=== PATIENT | female | born 1990 | race Caucasian/White ===

== ENCOUNTER 2020-04-01 07:39 | Inpatient (IN) ==
[2020-04-01] MEDS ORDERED: miSOPROStoL 50 MCG TAB PO ONE (09:27)
[2020-04-01] MEDS ORDERED: OXYTOCIN 30 UNITS/500 ML BAG IV PRN (09:27)
--- NOTE | 2020-04-01 09:35 | Progress Note ---
Date of Service April 01, 2020 Assessment & Plan Admission and Anticipated Discharge Date Admission Date: April 01, 2020 Subjective Pt doing well Induction for prolonged gestation Bedside sono; VT FHR; CAT1 Ctx; minimal VE; ft/post/-3 EFW by juan; 7-8Lbs Results & Data ([facility]) Vital Signs (Past 12 Hours) Vital Signs Temp Pulse Resp BP 04/01/20 07:47 36.8 C 108 H 20 138/80
[2020-04-01 09:57] LABS: Hematocrit (blood only) 33.6 % (37-47); Hemoglobin 11.5 g/dL (12.0-16.0); Mean Corpuscular Hemoglobin 30.4 pg (25-34); Mean Corpuscular Hgb Conc 34.2 g/dL (32-36); Mean Corpuscular Volume 88.9 fL (80-100); Mean Platelet Volume 9.8 fL (7.4-10.4); Platelet Count 373 K/uL (130-400); RDW Coefficient of Variation 13.7 % (11.5-14.5); Red Blood Count 3.78 M/uL (4.2-5.4); White Blood Count 16.13 K/uL (4.8-10.8)
--- NOTE | 2020-04-01 16:42 | Progress Note ---
Date of Service April 01, 2020 Assessment & Plan Admission and Anticipated Discharge Date Admission Date: April 01, 2020 Subjective Pt doiong well FHR' CAT1 Ctx; 2-3.mild intensity discussed starting Pitocin pt agrees Results & Data ([facility]) Vital Signs (Past 12 Hours) Vital Signs Temp Pulse Resp BP 04/01/20 14:56 98 H 111/72 04/01/20 11:38 37.0 C 84 20 113/58 L 04/01/20 07:47 36.8 C 108 H 20 138/80
[2020-04-01] MEDS: LACTATED RINGER'S 1,000 ML IV PRN (17:04)
[2020-04-01] MEDS: OXYTOCIN 30 UNITS/500 ML BAG IV PRN (17:05)
[2020-04-01] MEDS ORDERED: DINOPROSTONE 10 MG INSERT PV ONE (23:22)
--- NOTE | 2020-04-01 23:22 | Progress Note ---
Date of Service April 01, 2020 Assessment & Plan Admission and Anticipated Discharge Date Admission Date: April 01, 2020 Subjective Pt doing well Pit 20 MU Ctx irregular. mild intensity VE; ft/post FHr; CAT1 Plan D/C Piitocin feed pt Cervidil Results & Data ([facility]) Vital Signs (Past 12 Hours) Vital Signs Temp Pulse Resp BP 04/01/20 21:11 36.7 C 18 04/01/20 20:55 77 125/73 04/01/20 20:02 81 104/51 L 04/01/20 19:08 88 119/65 04/01/20 19:05 36.7 C 18 04/01/20 16:54 86 131/80 04/01/20 14:56 36.9 C 98 H 18 111/72 04/01/20 11:38 37.0 C 84 20 113/58 L
[2020-04-01] MEDS: ONDANSETRON INJ 2 MG/ML 2 ML VIAL IV PRN (23:32)
--- NOTE | 2020-04-02 01:38 | Progress Note ---
Date of Service April 02, 2020 Assessment & Plan Admission and Anticipated Discharge Date Admission Date: April 01, 2020 Subjective Cervidil inserted in vagina VE; Unchanged FHR; CAT1 Results & Data ([facility]) Vital Signs (Past 12 Hours) Vital Signs Temp Pulse Resp BP 04/01/20 21:11 36.7 C 18 04/01/20 20:55 77 125/73 04/01/20 20:02 81 104/51 L 04/01/20 19:08 88 119/65 04/01/20 19:05 36.7 C 18 04/01/20 16:54 86 131/80 04/01/20 14:56 36.9 C 98 H 18 111/72
[2020-04-02] MEDS: ONDANSETRON INJ 2 MG/ML 2 ML VIAL IV PRN (13:38)
[2020-04-02] MEDS: LACTATED RINGER'S 1,000 ML IV PRN ×3 (13:40→20:22)
[2020-04-02] MEDS ORDERED: Nursing to Pharmacy Communication SCH (14:00)
[2020-04-02] MEDS ORDERED: OXYTOCIN 30 UNITS/500 ML BAG IV PRN (14:18)
[2020-04-02] MEDS: OXYTOCIN 30 UNITS/500 ML BAG IV PRN (15:19)
--- NOTE | 2020-04-02 17:05 | Anesthesiology Consultation ---
Date of Service April 02, 2020 Assessment & Plan (1) Encounter for pre-operative examination: Chart Review Chart Review: Acceptable Risk for Labor Epidural History Height/Weight Height: 5 ft 3 in Weight: 96.616 kg Allergies Allergy/AdvReac Type Severity Reaction Status Date / Time No Known Allergies Allergy Unverified 03/26/20 15:19 Medications Home Medications Medication Instructions Recorded Confirmed Last Taken ondansetron [Zofran ODT] 8 mg PO Q12H 03/26/20 04/01/20 04/01/20 06:30 Active Medications Generic Name Dose Route Start Last Admin Trade Name Freq PRN Reason Stop Dose Admin Lactated Ringer's 1,000 mls @ 125 mls/hr 04/01/20 09:27 04/02/20 15:18 Lr IV 04/03/20 09:26 125 mls/hr .Q8H PRN Administration L&D Protocol Protocol Oxytocin 30 units in 500 mls @ 8 mls/hr 04/01/20 16:42 04/02/20 16:55 Pitocin IV 04/03/20 16:41 0.48 units/hr .Q24H PRN 8 mls/hr Labor Induction/Augmentation Titration Protocol 0.48 UNITS/HR Ondansetron HCl 4 mg 04/01/20 23:22 04/02/20 13:38 Ondansetron Inj 2 Mg/Ml 2 Ml Vial IV 05/01/20 23:21 4 mg Q4H PRN Administration Nausea Past Medical History Medical History Nonulcer dyspepsia Past Surgical History Surgical History [place] teeth removed Social History Smoking Status: Current every day smoker tobacco type: cigarettes Smoking cigarettes per day: 10 Do You Dip or Chew Tobacco: No Hx Alcohol Use: No Hx Substance Use: No Physical Exam Vital Signs Last Vital Signs Temp 36.9 C 04/02/20 07:32 Pulse 93 H 04/02/20 16:29 Resp 18 04/02/20 07:32 BP 119/63 04/02/20 16:29 Testing Laboratory Results 04/01/20 09:38
[2020-04-02] MEDS ORDERED: NALOXONE HCL 0.4 MG/1 ML VIAL/CARP IV PRN (21:21)
[2020-04-02] MEDS ORDERED: NALOXONE HCL 1 MG in SODIUM CHLORIDE 0.9% 1000ML 1,000 ML IV PRN (21:21)
[2020-04-02] MEDS ORDERED: diphenhydrAMINE 50 MG/ML VIAL IV PRN (21:21)
[2020-04-02] MEDS ORDERED: ePHEDrine sulfate 50 MG/ML AMP IV PRN (21:21)
[2020-04-02] MEDS ORDERED: ONDANSETRON INJ 2 MG/ML 2 ML VIAL IV PRN (21:21)
[2020-04-02] MEDS ORDERED: fentaNYL 2MCG/ML ROPIVACAINE 1.25MG/ML 100 ML BAG EPI PRN (21:21)
[2020-04-02] MEDS ORDERED: BUPIVACAINE 0.25% 30 ML VIAL INJ ONE (21:42)
[2020-04-02] MEDS ORDERED: fentaNYL citrate 100 MCG/2 ML VIAL IV PRN (21:45)
[2020-04-03] MEDS: LACTATED RINGER'S 1,000 ML IV PRN (01:20)
[2020-04-03] MEDS ORDERED: oxyCODONE/ACETAMINOPHEN 5mg/325mg TAB PO PRN (03:50)
[2020-04-03] MEDS ORDERED: ACETAMINOPHEN W/CODEINE #3 1 TAB PO PRN (03:50)
[2020-04-03] MEDS ORDERED: miSOPROStoL 200 MCG TAB PR ONE (03:50)
[2020-04-03] MEDS ORDERED: HYDROCORTISONE ACETATE 25 MG SUPP PR PRN (03:50)
[2020-04-03] MEDS ORDERED: METHYLERGONOVINE MALEATE 0.2 MG/ML AMP IM ONE (03:50)
[2020-04-03] MEDS ORDERED: bisacodyL 10 MG SUPP PR PRN (03:50)
[2020-04-03] MEDS ORDERED: SUPERCREAM 0.870% 15 GM JAR EXT PRN (03:50)
[2020-04-03] MEDS ORDERED: OXYTOCIN 30 UNITS/500 ML BAG IV PRN (03:50)
[2020-04-03] MEDS ORDERED: DIPHTHERIA/TETANUS/PERTUSSIS 0.5 ML SYR/VIAL IM ONE (03:50)
[2020-04-03] MEDS ORDERED: ACETAMINOPHEN 325 MG TAB PO PRN (03:50)
[2020-04-03] MEDS ORDERED: BENZOCAINE 20% AER SPR 82.5 GM CAN EXT PRN (03:50)
--- NOTE | 2020-04-03 04:08 | Anesthesia Procedure Note ---
Date of Service April 03, 2020 Anesthesia Post Epidural Note Vital Signs Vital Signs: Temp Pulse Resp BP Pulse Ox 37.0 C 100 H 18 127/76 96 04/03/20 02:00 04/03/20 03:58 04/03/20 03:00 04/03/20 03:58 04/03/20 03:48 Pain Intensity Lower Abdomen: Pain Intensity: 7 Notes Mental Status: alert / awake / arousable and participated in evaluation Nausea / Vomiting: adequately controlled Pain: adequately controlled Airway Patency, RR, SpO2: stable & adequate BP & HR: stable & adequate Hydration State: stable & adequate Neuraxial Anesthesia: was administered and sensory block is resolving Anesthetic Complications: no major complications apparent and Pt Satisfied with anesthetic care Epidural: Removed without complications and With tip intact
--- NOTE | 2020-04-03 04:33 | Operative Report (OR) ---
DATE OF OPERATION: 04/03/2020 The patient was brought in for induction. She was several days over her due date. Blood type is A positive, beta strep negative. She was given p.o. Cytotec. She then contracted too frequently to give her a second dose. She was fed overnight, put in a Cervidil tape. The following day after 12 hours, we removed the Cervidil tape. She was about 2 cm dilated, was started on Pitocin. Kept upping the Pitocin. Eventually, she received epidural for pain control. Then she had the membranes ruptured at about 4 cm. A moderate amount of meconium in the fluid. Continued to up the Pitocin. Went to full dilatation, two pushes, pushed out a live infant over an intact perineum. Cord was allowed to pulse for a minute, then clamped and cut by the father. Cord blood was taken. With IV Pitocin running, placenta was removed intact. Perineum was intact except for a very superficial laceration at 6 o'clock, which was repaired with a running 3-0 chromic. Gave her IM Methergine and then 800 mcg of rectal Cytotec. Uterus contracted nicely. Estimated blood loss was 400 mL. There was a nuchal cord which was reduced over the head prior to delivery of the . Infant was carefully suctioned through the mouth and the nose, both prior to delivery of the body and also immediately thereafter. Apgars will be deferred to the nurses. I attest to the content of the Intraoperative Record and any orders documented therein. Any exception s are noted below.
[2020-04-03] MEDS: IBUPROFEN 600 MG TAB PO PRN ×4 (05:42→20:02)
[2020-04-03] MEDS: DOCUSATE SODIUM 100 MG CAP PO SCH ×2 (08:23→20:02)
[2020-04-03] MEDS: PRENATAL VITAMIN 1 TAB PO SCH (08:23)
[2020-04-04] MEDS: IBUPROFEN 600 MG TAB PO PRN ×2 (01:15→06:15)
[2020-04-04 07:24] LABS: Hematocrit (blood only) 33.9 % (37-47); Hemoglobin 11.3 g/dL (12.0-16.0); Mean Corpuscular Hemoglobin 30.3 pg (25-34); Mean Corpuscular Hgb Conc 33.3 g/dL (32-36); Mean Corpuscular Volume 90.9 fL (80-100); Mean Platelet Volume 9.8 fL (7.4-10.4); Platelet Count 327 K/uL (130-400); RDW Coefficient of Variation 13.7 % (11.5-14.5); RDW Standard Deviation 44.9 fL (36.4-46.3); Red Blood Count 3.73 M/uL (4.2-5.4); White Blood Count 16.04 K/uL (4.8-10.8)
[2020-04-04] MEDS: DOCUSATE SODIUM 100 MG CAP PO SCH (07:47)
[2020-04-04] MEDS: PRENATAL VITAMIN 1 TAB PO SCH (07:47)
--- NOTE | 2020-04-04 09:47 | Obstetrical Progress Note ---
Date of Service April 04, 2020 Assessment & Plan (1) Normal course: PPD #2 pt doing well d/c home with instructions Subjective Ambulation: ambulating normally Voiding: no voiding problems Passing Gas:: Yes Diet Tolerance:: regular diet Lochia:: Small Feeding Type:: breast feeding Review of Systems All systems reviewed & are unremarkable except as noted in HPI & below Physical Exam Constitutional WD/WN, vitals as above well developed and well nourished Eyes PERRL, conjunctivae normal, anicteric sclerae Neck trachea midline, no thyromegaly Respiratory normal respiratory effort, lungs clear to auscultation Auscultation: no crackles, no rales and no wheezes Cardiovascular RRR, no murmur, no edema Gastrointestinal (Abdomen) normal bowel sounds, soft, nontender, no hepatosplenomegaly Uterus is below umbilicus Musculoskeletal no cyanosis or clubbing, extremities motor strength 5/5 Skin no rashes, warm and dry Neurologic patellar DTR's 2+ bilat, sensation intact Psychiatric A+Ox3, euthymic affect Genitourinary normal external appearance Results & Data ([facility]) Vital Signs (Past 12 Hours) Vital Signs Temp Pulse Resp BP Pulse Ox 04/04/20 09:37 36.4 C L 75 20 123/74 97 04/04/20 08:42 36.4 C L 75 20 123/74 97 04/04/20 01:10 36.6 C 75 18 128/75
[2020-04-04] MEDS ORDERED: bisacodyL 5 MG TABEC PO SCH (20:00)
== END 2020-04-04 11:10 | disposition home or self-care (01) | DRG 807 ==
LOC: 4S1 07:39 → 4S2 04-03 06:30
DX: O77.0 Labor and delivery complicated by meconium in amniotic fluid; O69.81X0 Labor and delivery complicated by cord around neck, without compression, not applicable or unspecified; Z3A.40 40 weeks gestation of pregnancy; O48.0 Post-term pregnancy; O70.0 First degree perineal laceration during delivery; Z37.0 Single live birth